=== PATIENT | male | born 1985 | race Caucasian/White ===

== ENCOUNTER 2016-12-06 21:38 | Emergency (ER) | payer OTHER ==
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
--- NOTE | 2016-12-07 03:41 | ED ORDER SUMMARY ---
..... Patient: HAIDER ALMAGUER OrderSheet Merged With [facility] VisitID: [id number] [place] [address] 31y, M Registration Date/Time: 12/06/2016 ORDER SHEET Weight: 61.2 kg (stated) Allergies: No Known Drug Allergy GENERAL ORDERS: Breathalyzer (21:53 12/06/2016 JRomanelli R.N. verbal order read back to Hernandez CAIN) (Ack 22:03 AMcQuoid ER Tech1) (22:04 AMcQuoid ER Tech1) UA-Culture if indicated Urgent (21:54 12/06/2016 JRomanelli R.N. verbal order read back to Hernandez CAIN) (Ack 21:58 AMcQuoid ER Tech1) (3:03 JRomanelli R.N.) Urine Drug Screen Urgent (21:54 12/06/2016 JRomanelli R.N. verbal order read back to Hernandez CAIN) (Ack 21:58 AMcQuoid ER Tech1) (3:03 JRomanelli R.N.) CBC w Diff Urgent (22:02 12/06/2016 HBivens A.R.N.P.) (Ack 22:03 AMcQuoid ER Tech1) (3:03 JRomanelli R.N.) CMP Urgent (22:02 12/06/2016 HBivens A.R.N.P.) (Ack 22:03 AMcQuoid ER Tech1) (3:03 JRomanelli R.N.) Ethyl Alcohol Urgent (22:02 12/06/2016 HBivens A.R.N.P.) (Ack 22:03 AMcQuoid ER Tech1) (3:03 JRomanelli R.N.) Salicylate Level Urgent (22:02 12/06/2016 HBivens A.R.N.P.) (Ack 22:03 AMcQuoid ER Tech1) (3:03 JRomanelli R.N.) Acetaminophen Level Urgent (22:02 12/06/2016 HBivens A.R.N.P.) (Ack 22:03 AMcQuoid ER Tech1) (3:03 JRomanelli R.N.) MEDICATION ORDERS: - (Remeron 15 mg po) (02:57 12/07/2016 Hernandez CAIN) (3:27 Linda Vivas) -- (Seroquel 100 mg po) (02:57 12/07/2016 Hernandez CAIN) (3:29 Linda Vivas) IV FLUIDS: ORDER SHEET NOTES: [Electronically signed by Uri Wilder R.N. (05:12/07/2016)] [Electronically signed by Jax Brown MD (11:29 12/08/2016)] [Electronically locked/signed by Uri Wilder R.N. (05:12/07/2016)]
--- NOTE | 2016-12-07 03:41 | ED ORDER SUMMARY ---
..... Patient: HAIDER ALMAGUER OrderSheet [facility] VisitID: [id number] [place] [address] 31y, M Registration Date/Time: 12/06/2016 ORDER SHEET Weight: 61.2 kg (stated) Allergies: No Known Drug Allergy GENERAL ORDERS: Breathalyzer (21:53 12/06/2016 JRomanelli R.N. verbal order read back to Hernandez CAIN) (Ack 22:03 AMcQuoid ER Tech1) (22:04 AMcQuoid ER Tech1) UA-Culture if indicated Urgent (21:54 12/06/2016 JRomanelli R.N. verbal order read back to Hernandez CAIN) (Ack 21:58 AMcQuoid ER Tech1) (3:03 JRomanelli R.N.) Urine Drug Screen Urgent (21:54 12/06/2016 JRomanelli R.N. verbal order read back to Hernandez CAIN) (Ack 21:58 AMcQuoid ER Tech1) (3:03 JRomanelli R.N.) CBC w Diff Urgent (22:02 12/06/2016 HBivens A.R.N.P.) (Ack 22:03 AMcQuoid ER Tech1) (3:03 JRomanelli R.N.) CMP Urgent (22:02 12/06/2016 HBivens A.R.N.P.) (Ack 22:03 AMcQuoid ER Tech1) (3:03 JRomanelli R.N.) Ethyl Alcohol Urgent (22:02 12/06/2016 HBivens A.R.N.P.) (Ack 22:03 AMcQuoid ER Tech1) (3:03 JRomanelli R.N.) Salicylate Level Urgent (22:02 12/06/2016 HBivens A.R.N.P.) (Ack 22:03 AMcQuoid ER Tech1) (3:03 JRomanelli R.N.) Acetaminophen Level Urgent (22:02 12/06/2016 HBivens A.R.N.P.) (Ack 22:03 AMcQuoid ER Tech1) (3:03 JRomanelli R.N.) MEDICATION ORDERS: - (Remeron 15 mg po) (02:57 12/07/2016 Hernandez CAIN) (3:27 Linda Vivas) -- (Seroquel 100 mg po) (02:57 12/07/2016 Hernandez CAIN) (3:29 Linda Vivas) IV FLUIDS: ORDER SHEET NOTES: [Electronically signed by Uri Wilder R.N. (05:12/07/2016)] [Electronically signed by Jax Brown MD (11:29 12/08/2016)] [Electronically locked/signed by Uri Wilder R.N. (05:12/07/2016)]
--- NOTE | 2016-12-07 03:41 | ED NURSING NOTES ---
Clinical Report - Nurses [facility] [address] [place] [address] 12/06/2016 21:38 [id number] Triage time 21:42 Dec 06 2016. Acuity: LEVEL 3. Chief Complaint: DEPRESSION and ANXIETY. Alert. AURELIA COMA SCORE: Edmonds Coma Scale: 15- eyes open spontaneously (4); best verbal response- oriented x 4 (5); best motor response- obeys commands (6). --21:53 Uri Wilder R.N. 21:42 12/06/16. BP: 119/89. HR: 80. RR: 16. O2 saturation: 99% on room air. Temp: 98.6 F (oral). Pain level now: 0/10. --21:53 Uri Wilder R.N. Weight: 61.2 kg stated. Height/Length: 67 inches Per Patient. BMI: 21.2. --21:42 Uri Wilder R.N. Medications SEROquel Oral 100 mg, daily. --21:45 Uri Wilder R.N. Remeron Oral 15 mg, at bedtime. --21:46 Uri Wilder R.N. Protonix Oral 40 mg, daily. --21:46 Uri Wilder R.N. Medication/allergy information source: the patient. --21:53 Uri Wilder R.N. Allergies No Known Drug Allergy. --21:47 Uri Wilder R.N. History Arrived by EMS. Historian: patient. Unaccompanied. ( Depression associated with anxiety. Pt states that he is looking for some help before he becomes aggressive.). Onset. (about 2 weeks ago). He has had anxiety and sleeping difficulties and describes feelings of depression. Has been feeling agitated. Treatment ROCK LATHER: None. PAST MEDICAL HX: Anxiety. Moderate depression and schizophrenia. Immunizations: up-to-date. SURGERY HX: No history of previous surgery. SOCIAL HX: Smoker- current status unknown (Chews tobacco). Alcohol use; consumes beer occasionally. History of occasional drug use. No infectious disease exposure. ABUSE ASSESSMENT: No report of abuse. SELF HARM ASSESSMENT: A self harm assessment was performed. The patient answered "yes" to the question "Have you recently felt down, depressed, or hopeless?", "Have you noticed less interest or pleasure in doing things?" and "Have you recently had thoughts about harming or killing others?" and "no" to the question "Do you have thoughts of harming or killing yourself?", "Are you here because you tried to hurt yourself?" and "Have you ever tried to hurt yourself before today?". The patient reports their behavior. In the ED the patient has been restless. FALL RISK ASSESSMENT: Fall risk assessment completed. No fall risk identified. --21:53 Uri Wilder R.N. Interventions ID band on patient. To treatment room. --:53 Uri Wilder R.N. NURSING PROGRESS NOTES Patient ID band checked for patient name: patient confirmed. Blood samples drawn from the right antecubital space with 23g butterfly by tech per protocol ; labeled in presence of the patient and sent to lab: harman set. --22:19 Rae Chopra ( breathalyzer 0.00%). --22:19 aRe Chopra 23:19 Patient contact made; patient easily awoken with verbal cues. Urine sample requested, patient unable to void at this time. --23:19 McQuoid, Sherry, ER Tech1 23:45. Patient ID band checked for patient name, birthdate and medical record number: patient confirmed. Instructions provided to collect clean catch urine and patient verbalized understanding. Clean catch urine collected with return of yellow-colored clear urine; odor is normal; sample sent to lab for urinalysis, culture and drug screen. Specimen labeled in the presence of the patient. --23:48 Uri Wilder R.N. 23:45 12/06/16. ( Pt given sandwich and juice). --23:49 Uri Wilder R.N. 00:05 12/07/16. BP: 103/53. HR: 73. RR: 16. O2 saturation: 100% on room air. Temp: 98.2 F. Pain level now: 0/10. --03:02 Uri Wilder R.N. 03:12 12/07/2016 Remeron (Mirtazapine) PO 15 mg given. Allergies verified and confirmed 5 rights. --03:27 Uri Wilder R.N. 03:14 12/07/2016 Seroquel * PO 100 mg --03:29 Uri Wilder R.N. DISPOSITION / DISCHARGE Departure time: 0110. --05:11 Uri Wilder R.N. 01:10. Condition at departure: improved. No learning barriers present. Discharge instructions provided and reviewed with the patient. Reviewed medication(s) (pt given a prescription prior to discharge but tore it up throwing the pieces about the room). Treatments reviewed (given contact information for [facility] Reviewed referrals for followup ([facility]). Written instructions provided in Pashto. Verbalized understanding (patient refused to acknowledge any suggestions of facility assistance.). Understanding not verbalized. The patient was discharged by the physician. He was discharged home and unaccompanied at time of discharge. He left the Emergency Department ambulatory and via police department vehicle (gave him a ride to [employer]). --05:20 Uri Wilder R.N. 01:00 12/07/16. BP: 116/58. HR: 76. RR: 16. O2 saturation: 99% on room air. Temp: 98.5 F (oral). Pain level now: 0/10. --05:22 Uri Wilder R.N. Locked/Released at 12/07/2016 5:23 by Uri Wilder R.N.
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
--- NOTE | 2016-12-07 03:41 | ED NURSING NOTES ---
Clinical Report - Nurses [facility] [address] [place] [address] 12/06/2016 21:38 [id number] Triage time 21:42 Dec 06 2016. Acuity: LEVEL 3. Chief Complaint: DEPRESSION and ANXIETY. Alert. AURELIA COMA SCORE: [place] Coma Scale: 15- eyes open spontaneously (4); best verbal response- oriented x 4 (5); best motor response- obeys commands (6). --21:53 Uri Wilder R.N. 21:42 12/06/16. BP: 119/89. HR: 80. RR: 16. O2 saturation: 99% on room air. Temp: 98.6 F (oral). Pain level now: 0/10. --21:53 Uri Wilder R.N. Weight: 61.2 kg stated. Height/Length: 67 inches Per Patient. BMI: 21.2. --21:42 Uri Wilder R.N. Medications SEROquel Oral 100 mg, daily. --21:45 Uri Wilder R.N. Remeron Oral 15 mg, at bedtime. --21:46 Uri Wilder R.N. Protonix Oral 40 mg, daily. --21:46 Uri Wilder R.N. Medication/allergy information source: the patient. --21:53 Uri Wilder R.N. Allergies No Known Drug Allergy. --21:47 Uri Wilder R.N. History Arrived by EMS. Historian: patient. Unaccompanied. ( Depression associated with anxiety. Pt states that he is looking for some help before he becomes aggressive.). Onset. (about 2 weeks ago). He has had anxiety and sleeping difficulties and describes feelings of depression. Has been feeling agitated. Treatment GLAZIER ARTIST: None. PAST MEDICAL HX: Anxiety. Moderate depression and schizophrenia. Immunizations: up-to-date. SURGERY HX: No history of previous surgery. SOCIAL HX: Smoker- current status unknown (Chews tobacco). Alcohol use; consumes beer occasionally. History of occasional drug use. No infectious disease exposure. ABUSE ASSESSMENT: No report of abuse. SELF HARM ASSESSMENT: A self harm assessment was performed. The patient answered "yes" to the question "Have you recently felt down, depressed, or hopeless?", "Have you noticed less interest or pleasure in doing things?" and "Have you recently had thoughts about harming or killing others?" and "no" to the question "Do you have thoughts of harming or killing yourself?", "Are you here because you tried to hurt yourself?" and "Have you ever tried to hurt yourself before today?". The patient reports their behavior. In the ED the patient has been restless. FALL RISK ASSESSMENT: Fall risk assessment completed. No fall risk identified. --21:53 Uri Wilder R.N. Interventions ID band on patient. To treatment room. --:53 Uri Wilder R.N. NURSING PROGRESS NOTES Patient ID band checked for patient name: patient confirmed. Blood samples drawn from the right antecubital space with 23g butterfly by tech per protocol ; labeled in presence of the patient and sent to lab: harman set. --22:19 Rae Chopra ( breathalyzer 0.00%). --22:19 Rae Chopra 23:19 Patient contact made; patient easily awoken with verbal cues. Urine sample requested, patient unable to void at this time. --23:19 McQuoid, Sherry, ER Tech1 23:45. Patient ID band checked for patient name, birthdate and medical record number: patient confirmed. Instructions provided to collect clean catch urine and patient verbalized understanding. Clean catch urine collected with return of yellow-colored clear urine; odor is normal; sample sent to lab for urinalysis, culture and drug screen. Specimen labeled in the presence of the patient. --23:48 Uri Wilder R.N. 23:45 12/06/16. ( Pt given sandwich and juice). --23:49 Uri Wilder R.N. 00:05 12/07/16. BP: 103/53. HR: 73. RR: 16. O2 saturation: 100% on room air. Temp: 98.2 F. Pain level now: 0/10. --03:02 Uri Wilder R.N. 03:12 12/07/2016 Remeron (Mirtazapine) PO 15 mg given. Allergies verified and confirmed 5 rights. --03:27 Uri Wilder R.N. 03:14 12/07/2016 Seroquel * PO 100 mg --03:29 Uri Wilder R.N. DISPOSITION / DISCHARGE Departure time: 0110. --05:11 Uri Wilder R.N. 01:10. Condition at departure: improved. No learning barriers present. Discharge instructions provided and reviewed with the patient. Reviewed medication(s) (pt given a prescription prior to discharge but tore it up throwing the pieces about the room). Treatments reviewed (given contact information for [facility] Reviewed referrals for followup ([facility]). Written instructions provided in Pashto. Verbalized understanding (patient refused to acknowledge any suggestions of facility assistance.). Understanding not verbalized. The patient was discharged by the physician. He was discharged home and unaccompanied at time of discharge. He left the Emergency Department ambulatory and via police department vehicle (gave him a ride to [employer]). --05:20 Uri Wilder R.N. 01:00 12/07/16. BP: 116/58. HR: 76. RR: 16. O2 saturation: 99% on room air. Temp: 98.5 F (oral). Pain level now: 0/10. --05:22 Uri Wilder R.N. Locked/Released at 12/07/2016 5:23 by Uri Wilder R.N.
--- NOTE | 2016-12-08 11:30 | ED MAR SUMMARY ---
..... Medication Administration Record [facility] [address] [place] [address] Patient: HAIDER ALMAGUER Visit ID: [id number] 31y, M Weight: 61.2 kg Height/Length: 67 in BMI: 21.2 ALLERGIES: No Known Drug Allergy Given 03:12 12/07/2016 Uri Wilder, R.N. Medication Administered: REMERON [PO] (MIRTAZAPINE), Dose: 15 mg PO. Medication Ordered: - (Remeron 15 mg po). Given 03:14 12/07/2016 Uri Wilder, R.N. Medication Administered: Seroquel *, Dose: 100 mg * PO. Medication Ordered: -- (Seroquel 100 mg po).
--- NOTE | 2016-12-08 11:30 | ED DISCHARGE INSTRUCTIONS ---
Patient: HAIDER ALMAGUER General Instructions [facility] VisitID: [id number] [address] [place] [address] 31y, M Registration Date/Time: 12/06/2016 Suicidal ideation. Out of medications Chronic anemia Hx of PUD. INSTRUCTIONS Stay with responsible adult family member (or other responsible adult). (See counselor at next available appointment.). Warnings: Further evaluation is necessary. Your Current Medications: CONTINUE TAKING THE FOLLOWING MEDICATIONS: Protonix Oral : 40 mg daily. Remeron Oral : 15 mg at bedtime. SEROquel Oral : 100 mg daily. Prescription Medications: Remeron 15 mg q day # 5. No refill Seroquel 100 mg po q day # 5. Protonix 40 mg po q day # 10. no refill. Understanding of the discharge instructions verbalized by patient. Follow-up with: [facility], , , [address], , [place], [address] Follow up in one week. Call for an appointment. Stay with responsible adult family member (or other responsible adult). (Electronically signed by Jax Brown MD 12/08/2016 11:29)
--- NOTE | 2016-12-08 11:30 | ED MAR SUMMARY ---
..... Medication Administration Record [facility] [address] [place] [address] Patient: HAIDER ALMAGUER Visit ID: [id number] 31y, M Weight: 61.2 kg Height/Length: 67 in BMI: 21.2 ALLERGIES: No Known Drug Allergy Given 03:12 12/07/2016 Uri Wilder, R.N. Medication Administered: REMERON [PO] (MIRTAZAPINE), Dose: 15 mg PO. Medication Ordered: - (Remeron 15 mg po). Given 03:14 12/07/2016 Uri Wilder, R.N. Medication Administered: Seroquel *, Dose: 100 mg * PO. Medication Ordered: -- (Seroquel 100 mg po).
--- NOTE | 2016-12-08 11:30 | ED MED RECONCILIATION SUMMARY ---
Patient: HAIDER ALMAGUER Medication Reconciliation Report [facility] VisitID: [id number] [address] [place] [address] 31y, M Registration Date/Time: 12/06/2016 Weight: 61.2 kg Height/Length: 67 in. BMI: 21.2 ALLERGIES: No Known Drug Allergy The patient's Home Medications are listed below: CONTINUE TAKING THE FOLLOWING MEDICATIONS: Protonix Oral 40 mg, daily Remeron Oral 15 mg, at bedtime SEROquel Oral 100 mg, daily The source(s) of the original Home Medication information: patient The following Medications were given to the patient in the Emergency Department: Remeron [PO] PO 15 mg, administered: 12/07/2016 3:12:00 AM Seroquel PO 100 mg, administered: 12/07/2016 3:14:00 AM The following Medications were prescribed to the patient: Remeron 15 mg q day # 5. No refillSeroquel 100 mg po q day # 5.Protonix 40 mg po q day # 10. no refill. -- Jax Brown MD
--- NOTE | 2016-12-08 11:30 | ED MED RECONCILIATION SUMMARY ---
Patient: HAIDER ALMAGUER Medication Reconciliation Report [facility] VisitID: [id number] [address] [place] [address] 31y, M Registration Date/Time: 12/06/2016 Weight: 61.2 kg Height/Length: 67 in. BMI: 21.2 ALLERGIES: No Known Drug Allergy The patient's Home Medications are listed below: CONTINUE TAKING THE FOLLOWING MEDICATIONS: Protonix Oral 40 mg, daily Remeron Oral 15 mg, at bedtime SEROquel Oral 100 mg, daily The source(s) of the original Home Medication information: patient The following Medications were given to the patient in the Emergency Department: Remeron [PO] PO 15 mg, administered: 12/07/2016 3:12:00 AM Seroquel PO 100 mg, administered: 12/07/2016 3:14:00 AM The following Medications were prescribed to the patient: Remeron 15 mg q day # 5. No refillSeroquel 100 mg po q day # 5.Protonix 40 mg po q day # 10. no refill. -- Jax Brown MD
--- NOTE | 2016-12-08 11:30 | ED DISCHARGE INSTRUCTIONS ---
Patient: HAIDER ALMAGUER General Instructions [facility] VisitID: [id number] [address] [place] [address] 31y, M Registration Date/Time: 12/06/2016 Suicidal ideation. Out of medications Chronic anemia Hx of PUD. INSTRUCTIONS Stay with responsible adult family member (or other responsible adult). (See counselor at next available appointment.). Warnings: Further evaluation is necessary. Your Current Medications: CONTINUE TAKING THE FOLLOWING MEDICATIONS: Protonix Oral : 40 mg daily. Remeron Oral : 15 mg at bedtime. SEROquel Oral : 100 mg daily. Prescription Medications: Remeron 15 mg q day # 5. No refill Seroquel 100 mg po q day # 5. Protonix 40 mg po q day # 10. no refill. Understanding of the discharge instructions verbalized by patient. Follow-up with: [facility], , , [address], , [place], [address] Follow up in one week. Call for an appointment. Stay with responsible adult family member (or other responsible adult). (Electronically signed by Jax Brown MD 12/08/2016 11:29)
== END 2016-12-07 03:40 | disposition home or self-care (01) ==
LOC: ED SRH 21:38
DX: R45.851 Suicidal ideations (principal); D64.9 Anemia, unspecified; F12.10 Cannabis abuse, uncomplicated; Z87.11 Personal history of peptic ulcer disease
CPT/HCPCS: 90004; 90100; 91643; 92010; 92760; 92761; 92762; 92763; 92764; 92765; 92766; 92767; 92780; 95059; 97000